=== PATIENT | female | born 1960 | race Caucasian/White ===

== ENCOUNTER 2017-02-08 08:51 | Inpatient (IN) ==
[2017-02-08 09:30] LABS: MANUAL DIFF NEEDED? NO
[2017-02-08 09:53] LABS: BASO% 0.1 % (0.0-0.8); EOS# 0.02 X1000 (0.0-0.7); EOS% 0.2 % (0.0-10.0); HEMATOCRIT 39.4 % (37.0-47.0); HEMOGLOBIN 12.3 g/dL (12.0-16.0); IMM GRAN# 0.01 X1000 (0.0-0.04); IMM GRAN% 0.1 % (0.0-0.5); LYMPH# 0.94 X1000 (1.2-3.4); LYMPH% 8.2 % (20.5-51.1); MCH 27.8 PG (27-31); MCHC 31.2 g/dL (33-37); MCV 89.1 FL (81-99); MONO% 6.1 % (1.7-9.3); MPV 10.3 FL (7.4-10.4); NEUT% 85.3 % (42.2-75.2); PLT 252 X1000 (130-400); RBC 4.42 XMIL (4.2-5.4)
[2017-02-08 10:16] LABS: AGAP 11; ALBUMIN 4.2 g/dL (3.5-5.0); ALKALINE PHOSPHATASE 84 U/L (32-104); BUN 11 mg/dL (8-22); CHLORIDE 99 mmol/L (98-107); COSMO 274; GOT 10 U/L (10-30); GPT 9 U/L (10-36); POTASSIUM 4.4 mmol/L (3.5-5.1); SODIUM 137 mmol/L (136-145); TCO2 27 mmol/L (25-35)
[2017-02-08] MEDS ORDERED: TYLENOL PO ONE (10:25)
[2017-02-08] MEDS ORDERED: LOVENOX SUBQ ONE (11:16)
[2017-02-08] MEDS ORDERED: ASPIRIN PO ONE (11:19)
[2017-02-08] MEDS ORDERED: ZOFRAN IV ONE (11:21)
[2017-02-08] MEDS ORDERED: HEPARIN IV ONE (11:23)
[2017-02-08 12:02] LABS: INR 0.84 (0.86-1.15); PROTIME 12.2 Seconds (12.1-15.5)
[2017-02-08 12:03] LABS: PTT PL 28.9 Seconds (22.6-43.9)
[2017-02-08] MEDS ORDERED: HEPARIN 25,000 UNITS/D5W 25,000 UNIT/250 ML IV.SOLN IV SCH (12:15)
[2017-02-08] MEDS ORDERED: HEPARIN 25,000 UNITS/D5W 25,000 UNIT/250 ML IV.SOLN ONE (12:20)
[2017-02-08] MEDS: NS 1,000 ML IV SCH (15:02)
[2017-02-08] MEDS: TORADOL IV SCH ×2 (15:04→20:47)
[2017-02-08] MEDS ORDERED: LOVENOX SUBQ SCH (16:00)
[2017-02-08] MEDS: ZANTAC PO SCH (20:47)
[2017-02-08] MEDS: NORCO-5 PO PRN (20:47)
[2017-02-09] MEDS: TORADOL IV SCH ×4 (02:00→20:22)
[2017-02-09] MEDS: NS 1,000 ML IV SCH ×2 (04:31→18:17)
[2017-02-09 05:46] LABS: HEMATOCRIT 32.9 % (37.0-47.0); MCH 27.7 PG (27-31); MCHC 30.4 g/dL (33-37); MCV 91.1 FL (81-99); MPV 10.7 FL (7.4-10.4); RBC 3.61 XMIL (4.2-5.4)
[2017-02-09] MEDS: PRILOSEC PO SCH (06:08)
[2017-02-09] MEDS: NORCO-5 PO PRN (06:08)
[2017-02-09 06:10] LABS: AGAP 11; ALBUMIN 3.2 g/dL (3.5-5.0); ALKALINE PHOSPHATASE 62 U/L (32-104); BUN 20 mg/dL (8-22); CALCIUM 8.1 mg/dL (8.8-10.2); CHLORIDE 105 mmol/L (98-107); COSMO 282; GOT 8 U/L (10-30); GPT 6 U/L (10-36); POTASSIUM 4.2 mmol/L (3.5-5.1); SODIUM 140 mmol/L (136-145); TCO2 24 mmol/L (25-35); TOTAL PROTEIN 5.8 g/dL (6.3-8.3)
[2017-02-09] MEDS: ZOFRAN IV PRN ×2 (07:53→17:21)
[2017-02-09] MEDS: CELEXA PO SCH (09:06)
[2017-02-09] MEDS: WELCHOL PO SCH ×2 (09:06→12:00)
[2017-02-09] MEDS: ZANTAC PO SCH ×2 (09:06→20:22)
[2017-02-09] MEDS ORDERED: TYLENOL PO ONE (17:26)
[2017-02-09] MEDS: XARELTO PO SCH (18:15)
[2017-02-09] MEDS ORDERED: SODIUM CHLORIDE 0.9% INJ PRN (18:31)
[2017-02-09] MEDS ORDERED: PHENERGAN IV PRN (18:31)
[2017-02-09] MEDS: MYLICON PO SCH (20:22)
[2017-02-09] MEDS ORDERED: DULCOLAX PR ONE (21:00)
[2017-02-10] MEDS: TORADOL IV SCH ×4 (02:18→20:41)
[2017-02-10] MEDS: PRILOSEC PO SCH (06:03)
[2017-02-10] MEDS: XARELTO PO SCH ×2 (06:03→17:34)
[2017-02-10] MEDS: NORCO-5 PO PRN ×2 (06:07→17:34)
[2017-02-10] MEDS: NS 1,000 ML IV SCH ×2 (08:09→20:40)
[2017-02-10] MEDS: CELEXA PO SCH (08:09)
[2017-02-10] MEDS: ZANTAC PO SCH ×2 (08:10→20:40)
[2017-02-10] MEDS: MYLICON PO SCH ×4 (08:10→20:40)
[2017-02-10] MEDS ORDERED: DULCOLAX PR ONE (09:00)
[2017-02-10] MEDS: WELCHOL PO SCH (12:09)
[2017-02-10] MEDS: ZOFRAN IV PRN (17:33)
[2017-02-11] MEDS: TORADOL IV SCH ×4 (02:19→20:42)
[2017-02-11] MEDS: PRILOSEC PO SCH (06:14)
[2017-02-11] MEDS: XARELTO PO SCH ×2 (06:14→17:36)
[2017-02-11] MEDS: WELCHOL PO SCH ×2 (08:32→11:10)
[2017-02-11] MEDS: CELEXA PO SCH (08:32)
[2017-02-11] MEDS: MYLICON PO SCH ×7 (08:32→20:43)
[2017-02-11] MEDS: ZANTAC PO SCH ×2 (08:33→20:43)
[2017-02-11] MEDS: TYLENOL PO PRN ×3 (10:19→23:47)
[2017-02-11] MEDS: NS 1,000 ML IV SCH (13:12)
[2017-02-12] MEDS: TORADOL IV SCH ×3 (01:19→13:11)
[2017-02-12] MEDS: NS 1,000 ML IV SCH (02:20)
[2017-02-12] MEDS: PRILOSEC PO SCH (06:27)
[2017-02-12] MEDS: TYLENOL PO PRN ×3 (06:27→20:30)
[2017-02-12] MEDS: XARELTO PO SCH ×2 (06:28→17:53)
[2017-02-12] MEDS: ZANTAC PO SCH ×2 (08:06→20:31)
[2017-02-12] MEDS: MYLICON PO SCH ×4 (08:06→20:31)
[2017-02-12] MEDS: CELEXA PO SCH (08:06)
[2017-02-12] MEDS ORDERED: SALINE LOCK IV FLUID XX ONE (10:35)
[2017-02-12] MEDS: WELCHOL PO SCH ×3 (11:30→16:33)
[2017-02-13] MEDS: PRILOSEC PO SCH (06:30)
[2017-02-13] MEDS: XARELTO PO SCH (06:30)
[2017-02-13] MEDS: ZANTAC PO SCH (08:19)
[2017-02-13] MEDS: CELEXA PO SCH (08:19)
[2017-02-13] MEDS: MYLICON PO SCH ×2 (08:19→13:27)
[2017-02-13] MEDS ORDERED: ZITHROMAX PO ONE ×2 (11:25→13:45)
[2017-02-13] MEDS ORDERED: OMNICEF PO SCH (11:30)
[2017-02-13 11:52] VITALS: BP 143/76
[2017-02-13] MEDS: WELCHOL PO SCH (13:27)
[2017-02-13] MEDS: TYLENOL PO PRN (13:44)
[2017-02-14] MEDS ORDERED: ZITHROMAX PO SCH (09:00)
== END 2017-02-13 15:10 | disposition home or self-care (01) ==
LOC: P.ED 08:51 → P.MEDSURG 13:18 → SUATTDRO 13:18
PROVIDERS: ADMIT Family Medicine; ATTEND Family Medicine